=== PATIENT | male | born 1940 | race Two or more races ===

== ENCOUNTER 2017-12-08 13:34 | Inpatient (IN) | payer MEDICARE ==
[2017-12-08] MEDS: IV NORMAL SALINE 1000ML BAG 1,000 ML IV ×2 (14:27→17:53)
[2017-12-08 14:28] LABS: ADD MAN DIFF? NO
[2017-12-08 14:37] LABS: BASO % 1 % (0-3); EOS # 0.1 x10^3/uL (0.0-0.7); EOS % 2 % (0-3); HEMATOCRIT 36.2 % (39.0-53.0); HEMOGLOBIN 11.9 g/dL (13.0-17.5); LYMPH # 1.2 x10^3/uL (1.0-4.8); LYMPH % 20 % (24-48); MEAN CORPUSCULAR HEMOGLOBIN 32 pg (25-35); MEAN CORPUSCULAR HGB CONC 33 g/dL (31-37); MEAN CORPUSCULAR VOLUME 98 fL (79-100); MONO # 0.4 x10^3/uL (0.0-1.1); MONO % 7 % (0-9); NEUT # 4.1 x10^3uL (1.8-7.7); NEUT % 70 % (31-73); PLATELET COUNT 173 x10^3/uL (140-400); RED BLOOD COUNT 3.69 x10^6/uL (4.30-5.70); RED CELL DISTRIBUTION WIDTH 15.5 % (11.5-14.5)
[2017-12-08 14:46] LABS: INR 1.1 (0.8-1.1); PARTIAL THROMBOPLASTIN TIME 28 SEC (24-38); PROTHROMBIN TIME PATIENT 13.6 SEC (11.7-14.0)
[2017-12-08 14:53] LABS: ANION GAP 16 (6-14); BLOOD UREA NITROGEN 77 mg/dL (8-26); BUN/CREATININE RATIO 19 (6-20); CARBON DIOXIDE 21 mmol/L (21-32); CHLORIDE 100 mmol/L (98-107); CREATININE 4.1 mg/dL (0.7-1.3); GFR 14.2; GLUCOSE 245 mg/dL (70-99); POTASSIUM 4.8 mmol/L (3.5-5.1); SODIUM 137 mmol/L (136-145)
[2017-12-08 14:55] LABS: POC GLUCOSE 223 mg/dL (70-99)
[2017-12-08 14:55] LABS: ALBUMIN 3.7 g/dL (3.4-5.0); ALBUMIN/GLOBULIN RATIO 0.9 (1.0-1.7); ALK PHOS 112 U/L (46-116); ALT (SGPT) 41 U/L (16-63); AST (SGOT) 21 U/L (15-37); MAGNESIUM 1.9 mg/dL (1.8-2.4); TOTAL BILIRUBIN 0.2 mg/dL (0.2-1.0)
[2017-12-08 14:56] LABS: TROPONINI < 0.017 ng/mL (0.000-0.055)
[2017-12-08 15:01] LABS: NT-PRO BNP 830 pg/mL (0-449)
[2017-12-08 15:04] LABS: THYROID STIM HORMONE (TSH) 3.293 uIU/mL (0.358-3.74)
[2017-12-08] MEDS ORDERED: ONDANSETRON PF 4 MG/2 ML VIAL. IV (16:00)
[2017-12-08] MEDS ORDERED: ACETAMINOPHEN 325 MG TABLET. PO (16:00)
[2017-12-08 16:04] LABS: BILIRUBIN,URINE NEGATIVE (NEG); CLARITY,URINE CLEAR; COLOR,URINE YELLOW; GLUCOSE,URINE 500 mg/dL (NEG); NITRITE,URINE NEGATIVE (NEG); PROTEIN,URINE 30 mg/dL (NEG-TRACE); UROBILINOGEN,URINE 0.2 mg/dL (0.2 mg/dL)
[2017-12-08 16:12] LABS: BACTERIA,URINE 0 /HPF (0-FEW); HYALINE CASTS, URINE FEW /HPF; SQUAMOUS EPITHELIAL CELL,UR FEW /LPF; WBC,URINE 0 /HPF (0-4)
[2017-12-08] MEDS ORDERED: DEXTROSE 50% 25 GM / 50ML DISP.SYRIN. IV (17:15)
[2017-12-08 17:36] LABS: POC GLUCOSE 159 mg/dL (70-99)
[2017-12-08 17:52] LABS: LACTIC ACID 2.4 mmol/L (0.4-2.0)
[2017-12-08] MEDS: DONEPEZIL HCL 5 MG TABLET. PO (17:52)
[2017-12-08 19:26] LABS: POC GLUCOSE 229 mg/dL (70-99)
[2017-12-08] MEDS: PRIMIDONE 50 MG TABLET PO (21:00)
[2017-12-08] MEDS: INSULIN DETEMIR 300 UNITS/3 ML INSULN.PEN. SQ (21:09)
[2017-12-09] MEDS: IV NORMAL SALINE 1000ML BAG 1,000 ML IV ×3 (01:55→13:53)
[2017-12-09 05:18] LABS: ADD MAN DIFF? NO
[2017-12-09 05:46] LABS: BASO % 1 % (0-3); EOS # 0.2 x10^3/uL (0.0-0.7); EOS % 4 % (0-3); HEMATOCRIT 29.8 % (39.0-53.0); HEMOGLOBIN 9.9 g/dL (13.0-17.5); LYMPH # 1.3 x10^3/uL (1.0-4.8); LYMPH % 27 % (24-48); MEAN CORPUSCULAR HEMOGLOBIN 33 pg (25-35); MEAN CORPUSCULAR HGB CONC 33 g/dL (31-37); MEAN CORPUSCULAR VOLUME 99 fL (79-100); MONO # 0.5 x10^3/uL (0.0-1.1); MONO % 10 % (0-9); NEUT # 2.8 x10^3uL (1.8-7.7); NEUT % 58 % (31-73); PLATELET COUNT 140 x10^3/uL (140-400); RED BLOOD COUNT 3.02 x10^6/uL (4.30-5.70); RED CELL DISTRIBUTION WIDTH 15.2 % (11.5-14.5); WHITE BLOOD COUNT 4.7 x10^3/uL (4.0-11.0)
[2017-12-09 06:17] LABS: ANION GAP 12 (6-14); BLOOD UREA NITROGEN 67 mg/dL (8-26); CALCIUM 8.5 mg/dL (8.5-10.1); CARBON DIOXIDE 22 mmol/L (21-32); CHLORIDE 107 mmol/L (98-107); CREATININE 3.9 mg/dL (0.7-1.3); GFR 15.1; GLUCOSE 112 mg/dL (70-99); POTASSIUM 4.2 mmol/L (3.5-5.1); SODIUM 141 mmol/L (136-145)
[2017-12-09 08:03] LABS: POC GLUCOSE 69 mg/dL (70-99)
[2017-12-09] MEDS: PRIMIDONE 50 MG TABLET PO ×2 (09:00→20:51)
[2017-12-09] MEDS: DONEPEZIL HCL 5 MG TABLET. PO (09:00)
[2017-12-09 09:52] LABS: LACTIC ACID 1.4 mmol/L (0.4-2.0)
[2017-12-09 09:56] LABS: % SAT IRON 48 % (15-34); IRON,SERUM 101 ug/dL (65-175)
[2017-12-09 10:14] LABS: FERRITIN 142 ng/mL (26-388)
[2017-12-09 11:30] LABS: POC GLUCOSE 135 mg/dL (70-99)
[2017-12-09 17:09] LABS: POC GLUCOSE 198 mg/dL (70-99)
[2017-12-09] MEDS ORDERED: DEXTROSE 50% 25 GM / 50ML DISP.SYRIN. IV ×3 (17:15)
[2017-12-09] MEDS: INSULIN ASPART 300 UNITS/3 ML INSULN.PEN SQ (17:30)
[2017-12-09] MEDS: INSULIN DETEMIR 300 UNITS/3 ML INSULN.PEN. SQ (20:54)
[2017-12-09 21:01] LABS: POC GLUCOSE 202 mg/dL (70-99)
[2017-12-09 22:15] LABS: HEMOGLOBIN A1C 7.5 % (4.8-5.6)
[2017-12-09 23:12] LABS: HEP B SURFACE ABDY Non Reactive (.)
[2017-12-10] MEDS: PRIMIDONE 50 MG TABLET PO ×2 (07:55→21:00)
[2017-12-10] MEDS: INSULIN ASPART 300 UNITS/3 ML INSULN.PEN SQ ×3 (07:55→17:41)
[2017-12-10] MEDS: DONEPEZIL HCL 5 MG TABLET. PO (07:55)
[2017-12-10 08:46] LABS: POC GLUCOSE 71 mg/dL (70-99)
[2017-12-10 08:58] LABS: ADD MAN DIFF? NO
[2017-12-10 09:14] LABS: ANION GAP 12 (6-14); BLOOD UREA NITROGEN 51 mg/dL (8-26); CALCIUM 8.9 mg/dL (8.5-10.1); CARBON DIOXIDE 20 mmol/L (21-32); CHLORIDE 108 mmol/L (98-107); CREATININE 2.8 mg/dL (0.7-1.3); GFR 22.1; GLUCOSE 68 mg/dL (70-99); POTASSIUM 4.1 mmol/L (3.5-5.1); SODIUM 140 mmol/L (136-145)
[2017-12-10 10:26] LABS: BASO % 1 % (0-3); EOS # 0.2 x10^3/uL (0.0-0.7); EOS % 4 % (0-3); HEMATOCRIT 28.8 % (39.0-53.0); HEMOGLOBIN 9.4 g/dL (13.0-17.5); LYMPH # 1.2 x10^3/uL (1.0-4.8); LYMPH % 29 % (24-48); MEAN CORPUSCULAR HEMOGLOBIN 32 pg (25-35); MEAN CORPUSCULAR HGB CONC 33 g/dL (31-37); MEAN CORPUSCULAR VOLUME 99 fL (79-100); MONO # 0.4 x10^3/uL (0.0-1.1); MONO % 10 % (0-9); NEUT # 2.4 x10^3uL (1.8-7.7); NEUT % 56 % (31-73); PLATELET COUNT 134 x10^3/uL (140-400); RED BLOOD COUNT 2.92 x10^6/uL (4.30-5.70); RED CELL DISTRIBUTION WIDTH 15.2 % (11.5-14.5); WHITE BLOOD COUNT 4.3 x10^3/uL (4.0-11.0)
[2017-12-10 12:04] LABS: POC GLUCOSE 63 mg/dL (70-99)
[2017-12-10 12:49] LABS: POC GLUCOSE 127 mg/dL (70-99)
[2017-12-10] MEDS: IV NORMAL SALINE 1000ML BAG 1,000 ML IV ×3 (15:44→20:00)
[2017-12-10 16:53] LABS: POC GLUCOSE 161 mg/dL (70-99)
[2017-12-10] MEDS: INSULIN DETEMIR 300 UNITS/3 ML INSULN.PEN. SQ (21:04)
[2017-12-10 21:18] LABS: POC GLUCOSE 191 mg/dL (70-99)
[2017-12-11] MEDS: IV NORMAL SALINE 1000ML BAG 1,000 ML IV ×3 (03:40→22:53)
[2017-12-11 05:31] LABS: ADD MAN DIFF? NO
[2017-12-11 05:43] LABS: BASO % 1 % (0-3); EOS # 0.1 x10^3/uL (0.0-0.7); EOS % 3 % (0-3); HEMATOCRIT 28.4 % (39.0-53.0); HEMOGLOBIN 9.5 g/dL (13.0-17.5); LYMPH # 1.2 x10^3/uL (1.0-4.8); LYMPH % 29 % (24-48); MEAN CORPUSCULAR HEMOGLOBIN 33 pg (25-35); MEAN CORPUSCULAR HGB CONC 33 g/dL (31-37); MEAN CORPUSCULAR VOLUME 98 fL (79-100); MONO # 0.4 x10^3/uL (0.0-1.1); MONO % 10 % (0-9); NEUT # 2.3 x10^3uL (1.8-7.7); NEUT % 57 % (31-73); PLATELET COUNT 132 x10^3/uL (140-400); RED BLOOD COUNT 2.89 x10^6/uL (4.30-5.70); RED CELL DISTRIBUTION WIDTH 15.1 % (11.5-14.5); WHITE BLOOD COUNT 4.1 x10^3/uL (4.0-11.0)
[2017-12-11 06:16] LABS: ANION GAP 10 (6-14); BLOOD UREA NITROGEN 39 mg/dL (8-26); CALCIUM 8.8 mg/dL (8.5-10.1); CARBON DIOXIDE 19 mmol/L (21-32); CHLORIDE 111 mmol/L (98-107); CREATININE 2.8 mg/dL (0.7-1.3); GFR 22.1; GLUCOSE 79 mg/dL (70-99); POTASSIUM 4.2 mmol/L (3.5-5.1); SODIUM 140 mmol/L (136-145)
[2017-12-11 07:47] LABS: POC GLUCOSE 46 mg/dL (70-99)
[2017-12-11] MEDS: INSULIN ASPART 300 UNITS/3 ML INSULN.PEN SQ ×3 (07:53→17:00)
[2017-12-11] MEDS: DONEPEZIL HCL 5 MG TABLET. PO (08:45)
[2017-12-11] MEDS: PRIMIDONE 50 MG TABLET PO ×2 (08:45→21:16)
[2017-12-11 08:50] LABS: POC GLUCOSE 126 mg/dL (70-99)
[2017-12-11 11:15] LABS: POC GLUCOSE 140 mg/dL (70-99)
[2017-12-11 17:07] LABS: POC GLUCOSE 137 mg/dL (70-99)
[2017-12-11 20:41] LABS: POC GLUCOSE 239 mg/dL (70-99)
[2017-12-11] MEDS: INSULIN DETEMIR 300 UNITS/3 ML INSULN.PEN. SQ (21:17)
[2017-12-12 05:20] LABS: ADD MAN DIFF? NO
[2017-12-12 05:40] LABS: BASO % 1 % (0-3); EOS # 0.1 x10^3/uL (0.0-0.7); EOS % 3 % (0-3); HEMATOCRIT 27.6 % (39.0-53.0); HEMOGLOBIN 9.2 g/dL (13.0-17.5); LYMPH # 1.2 x10^3/uL (1.0-4.8); LYMPH % 26 % (24-48); MEAN CORPUSCULAR HEMOGLOBIN 33 pg (25-35); MEAN CORPUSCULAR HGB CONC 33 g/dL (31-37); MEAN CORPUSCULAR VOLUME 98 fL (79-100); MONO # 0.5 x10^3/uL (0.0-1.1); MONO % 11 % (0-9); NEUT # 2.7 x10^3uL (1.8-7.7); NEUT % 59 % (31-73); PLATELET COUNT 123 x10^3/uL (140-400); RED BLOOD COUNT 2.81 x10^6/uL (4.30-5.70); RED CELL DISTRIBUTION WIDTH 15.4 % (11.5-14.5); WHITE BLOOD COUNT 4.6 x10^3/uL (4.0-11.0)
[2017-12-12 06:08] LABS: ANION GAP 11 (6-14); BLOOD UREA NITROGEN 35 mg/dL (8-26); CALCIUM 8.6 mg/dL (8.5-10.1); CARBON DIOXIDE 18 mmol/L (21-32); CHLORIDE 110 mmol/L (98-107); CREATININE 2.5 mg/dL (0.7-1.3); GFR 25.2; GLUCOSE 119 mg/dL (70-99); POTASSIUM 4.2 mmol/L (3.5-5.1); SODIUM 139 mmol/L (136-145)
[2017-12-12 07:33] LABS: POC GLUCOSE 64 mg/dL (70-99)
[2017-12-12] MEDS: INSULIN ASPART 300 UNITS/3 ML INSULN.PEN SQ ×3 (07:33→17:25)
[2017-12-12] MEDS: PRIMIDONE 50 MG TABLET PO ×2 (07:45→21:37)
[2017-12-12] MEDS: DONEPEZIL HCL 5 MG TABLET. PO (07:45)
[2017-12-12] MEDS: IV NORMAL SALINE 1000ML BAG 1,000 ML IV ×2 (07:45→21:39)
[2017-12-12 11:28] LABS: POC GLUCOSE 101 mg/dL (70-99)
[2017-12-12 13:19] LABS: CALCIUM PTH 8.9 mg/dL (8.6-10.2); PHOSPHORUS PTH 3.4 mg/dL (2.5-4.5); PTH INTACT 223 pg/mL (15-65); eGFR AFRICAN-AMER 18 (>59); eGFR NON AFRICAN-AMER 15 (>59)
[2017-12-12 17:15] LABS: POC GLUCOSE 141 mg/dL (70-99)
[2017-12-12 21:33] LABS: POC GLUCOSE 184 mg/dL (70-99)
[2017-12-12] MEDS: INSULIN DETEMIR 300 UNITS/3 ML INSULN.PEN. SQ (21:44)
[2017-12-13] MEDS: IV NORMAL SALINE 1000ML BAG 1,000 ML IV (04:33)
[2017-12-13 05:53] LABS: ADD MAN DIFF? NO
[2017-12-13 06:09] LABS: BASO % 1 % (0-3); EOS # 0.1 x10^3/uL (0.0-0.7); EOS % 3 % (0-3); HEMOGLOBIN 9.8 g/dL (13.0-17.5); LYMPH # 1.4 x10^3/uL (1.0-4.8); LYMPH % 28 % (24-48); MEAN CORPUSCULAR HEMOGLOBIN 32 pg (25-35); MEAN CORPUSCULAR HGB CONC 33 g/dL (31-37); MEAN CORPUSCULAR VOLUME 98 fL (79-100); MONO # 0.5 x10^3/uL (0.0-1.1); MONO % 11 % (0-9); NEUT # 2.8 x10^3uL (1.8-7.7); NEUT % 57 % (31-73); PLATELET COUNT 127 x10^3/uL (140-400); RED BLOOD COUNT 3.06 x10^6/uL (4.30-5.70); RED CELL DISTRIBUTION WIDTH 15.2 % (11.5-14.5)
[2017-12-13 06:19] LABS: ANION GAP 9 (6-14); BLOOD UREA NITROGEN 29 mg/dL (8-26); CALCIUM 8.5 mg/dL (8.5-10.1); CARBON DIOXIDE 20 mmol/L (21-32); CHLORIDE 109 mmol/L (98-107); CREATININE 2.1 mg/dL (0.7-1.3); GFR 30.8; GLUCOSE 54 mg/dL (70-99); POTASSIUM 4.1 mmol/L (3.5-5.1); SODIUM 138 mmol/L (136-145)
[2017-12-13 07:48] LABS: POC GLUCOSE 52 mg/dL (70-99)
[2017-12-13] MEDS: INSULIN ASPART 300 UNITS/3 ML INSULN.PEN SQ ×2 (07:48→11:41)
[2017-12-13 08:40] LABS: POC GLUCOSE 159 mg/dL (70-99)
[2017-12-13] MEDS: PRIMIDONE 50 MG TABLET PO (09:55)
[2017-12-13] MEDS: DONEPEZIL HCL 5 MG TABLET. PO (09:55)
[2017-12-13 11:26] LABS: POC GLUCOSE 135 mg/dL (70-99)
== END 2017-12-13 14:39 | disposition home health service (06) | DRG 314 ==
LOC: ER 13:34 → 6 SOUTH 15:30
DX: I95.9 Hypotension, unspecified (principal); N17.0 Acute kidney failure with tubular necrosis; N18.4 Chronic kidney disease, stage 4 (severe); E11.22 Type 2 diabetes mellitus with diabetic chronic kidney disease; E11.40 Type 2 diabetes mellitus with diabetic neuropathy, unspecified; D64.9 Anemia, unspecified; E86.0 Dehydration; F02.80 Dementia in other diseases classified elsewhere, unspecified severity, without behavioral disturbance, psychotic disturbance, mood disturbance, and anxiety; G25.0 Essential tremor; G30.9 Alzheimer's disease, unspecified; I12.9 Hypertensive chronic kidney disease with stage 1 through stage 4 chronic kidney disease, or unspecified chronic kidney disease; I25.10 Atherosclerotic heart disease of native coronary artery without angina pectoris; Z82.49 Family history of ischemic heart disease and other diseases of the circulatory system; Z86.73 Personal history of transient ischemic attack (TIA), and cerebral infarction without residual deficits; F32.9 Major depressive disorder, single episode, unspecified; R79.89 Other specified abnormal findings of blood chemistry; F41.9 Anxiety disorder, unspecified; H60.90 Unspecified otitis externa, unspecified ear; M10.9 Gout, unspecified; Z95.5 Presence of coronary angioplasty implant and graft
CPT/HCPCS: 36415; 70450; 71045; 76770; 80048; 80053; 81001; 82728; 82962; 83036; 83540; 83550; 83605; 83735; 83880; 83970; 84443; 84484; 85025; 85045; 85610; 85730; 86704; 86706; 87040; 93005; 93306; 96360; 97110-GP; 97116-GP; 97162-GP; 97165-GO; 97530-GP; 99285; 99285-25; J1815; J7030

== ENCOUNTER 2019-08-07 20:14 | Emergency (ER) | payer MEDICARE, MEDICAID ==
[~2019-08-07] VITALS: Ht 167.6 cm; Wt 47.6 kg
[~2019-08-07 20:14] MED LIST: ALLO300T67 PO; ATEN-56 PO; BUPR150T6 PO; CALC0.25 PO; CLOP75TA PO; DONE5TAB56 PO; FURO-69 PO; INSU100V13 SQ; MECL12.52 PO; PARO20TA99 PO; PRIM50TA PO
[2019-08-07 20:51] LABS: BASO # 0.1 x10^3/uL (0.0-0.2); BASO % 1 % (0-3); EOS # 0.2 x10^3/uL (0.0-0.7); EOS % 3 % (0-3); HEMATOCRIT 32.8 % (39.0-53.0); HEMOGLOBIN 10.5 g/dL (13.0-17.5); LYMPH % 12 % (24-48); MEAN CORPUSCULAR HEMOGLOBIN 31 pg (25-35); MEAN CORPUSCULAR HGB CONC 32 g/dL (31-37); MEAN CORPUSCULAR VOLUME 98 fL (79-100); MONO # 0.6 x10^3/uL (0.0-1.1); MONO % 8 % (0-9); NEUT # 6.3 x10^3/uL (1.8-7.7); NEUT % 77 % (31-73); PLATELET COUNT 223 x10^3/uL (140-400); RED BLOOD COUNT 3.34 x10^6/uL (4.30-5.70); RED CELL DISTRIBUTION WIDTH 15.6 % (11.5-14.5); WHITE BLOOD COUNT 8.1 x10^3/uL (4.0-11.0)
[2019-08-07] MEDS ORDERED: ONDA4TAB12 PO (21:02)
--- NOTE | 2019-08-07 21:02 | PHYS DOC ---
Past Medical History Past Medical History: Depression, Diabetes-Type II, Hypertension, Renal Failure (stage IV), Other Additional Past Medical Histor: GOUT Past Surgical History: Angioplasty Additional Past Surgical Histo: CARDAIC STENTS Alcohol Use: None Drug Use: None Adult General Chief Complaint Chief Complaint: NAUSEA/VOMITING/DIARRHA HPI HPI 78-year-old male from [facility] presents via [facility] secondary to questionable nausea vomiting and elevated blood pressure. On arrival here patient has absolutely no complaints. Patient has a history of dementia and is unable to provide an intricate history.[] Review of Systems Review of Systems Unable to assess review of systems secondary to underlying dementia. Allergies Allergies Allergies Coded Allergies Type Severity Reaction Last Updated Verified No Known Drug Allergies 12/08/17 No Physical Exam Physical Exam Constitutional: Well developed, well nourished, no acute distress, non-toxic appearance. [] HENT: Normocephalic, atraumatic, bilateral external ears normal, oropharynx moist, no oral exudates, nose normal. [] Eyes: PERRL, EOMI, conjunctiva normal, no discharge. [] Neck: Normal range of motion, no tenderness, supple, no stridor. [] Cardiovascular:Heart rate regular rhythm, no murmur [] Lungs & Thorax: Bilateral breath sounds clear to auscultation [] Abdomen: Bowel sounds normal, soft, no tenderness, no masses, no pulsatile masses. [] Skin: Warm, dry, no erythema, no rash. [] Back: No tenderness, no CVA tenderness. [] Extremities: No tenderness, no cyanosis, no clubbing, ROM intact, no edema. [] Neurologic: Alert and oriented X 3, normal motor function, normal sensory function, no focal deficits noted. [] Psychologic: Flat affect. [] Current Patient Data Vital Signs Vital Signs Date Time Temp Pulse Resp B/P (MAP) Pulse Ox O2 Delivery O2 Flow Rate FiO2 08/07/19 20:14 98.3 68 17 182/82 (115) 99 Room Air 98.3 Lab Values Laboratory Tests Test 08/07/19 20:30 White Blood Count 8.1 x10^3/uL (4.0-11.0) Red Blood Count 3.34 x10^6/uL (4.30-5.70) L Hemoglobin 10.5 g/dL (13.0-17.5) L Hematocrit 32.8 % (39.0-53.0) L Mean Corpuscular Volume 98 fL (79-100) Mean Corpuscular Hemoglobin 31 pg (25-35) Mean Corpuscular Hemoglobin Concent 32 g/dL (31-37) Red Cell Distribution Width 15.6 % (11.5-14.5) H Platelet Count 223 x10^3/uL (140-400) Neutrophils (%) (Auto) 77 % (31-73) H Lymphocytes (%) (Auto) 12 % (24-48) L Monocytes (%) (Auto) 8 % (0-9) Eosinophils (%) (Auto) 3 % (0-3) Basophils (%) (Auto) 1 % (0-3) Neutrophils # (Auto) 6.3 x10^3/uL (1.8-7.7) Lymphocytes # (Auto) 1.0 x10^3/uL (1.0-4.8) Monocytes # (Auto) 0.6 x10^3/uL (0.0-1.1) Eosinophils # (Auto) 0.2 x10^3/uL (0.0-0.7) Basophils # (Auto) 0.1 x10^3/uL (0.0-0.2) Sodium Level 144 mmol/L (136-145) Potassium Level 4.8 mmol/L (3.5-5.1) Chloride Level 108 mmol/L (98-107) H Carbon Dioxide Level 25 mmol/L (21-32) Anion Gap 11 (6-14) Blood Urea Nitrogen 43 mg/dL (8-26) H Creatinine 3.5 mg/dL (0.7-1.3) H Estimated GFR (Cockcroft-Gault) 17.0 BUN/Creatinine Ratio 12 (6-20) Glucose Level 326 mg/dL (70-99) H Calcium Level 9.4 mg/dL (8.5-10.1) Magnesium Level 1.7 mg/dL (1.8-2.4) L Total Bilirubin 0.2 mg/dL (0.2-1.0) Aspartate Amino Transferase (AST) 11 U/L (15-37) L Alanine Aminotransferase (ALT) 12 U/L (16-63) L Alkaline Phosphatase 118 U/L (46-116) H Troponin I Quantitative < 0.017 ng/mL (0.000-0.055) Total Protein 8.2 g/dL (6.4-8.2) Albumin 2.9 g/dL (3.4-5.0) L Albumin/Globulin Ratio 0.5 (1.0-1.7) L Lipase 248 U/L (73-393) Laboratory Tests 08/07/19 20:30 Laboratory Tests 08/07/19 20:30 EKG EKG [EKG: Normal sinus rhythm rate of [address]-T changes Radiology/Procedures Radiology/Procedures []PROCEDURE: CHEST AP ONLY CHEST AP ONLY History: Chest pain Comparison: December 08, 2017 Findings: Mild diffuse interstitial thickening. Patchy left basilar opacity. No pleural effusion. Normal heart size. No pneumothorax. Shrapnel projecting over the left mid chest and left upper extremity, unchanged. Impression: 1. Patchy left basilar opacity, may represent atelectasis or developing consolidation. PA and lateral view of the chest can better assess. 2. Mild diffuse interstitial thickening, may relate to chronic interstitial changes. Course & Med Decision Making Course & Med Decision Making Pertinent Labs and Imaging studies reviewed. (See chart for details) [ED course: Evaluation reveals a 78-year-old , Maltese only speaking male who has absolutely no complaints. His physical exam was unrevealing. I did not see any evidence that he had fallen or hurt himself. His abdomen was benign. I do not believe there is any need for routine lab test at this time. Patient safe for discharge back to the nursing facility. His daughter came later and he told his daughter that he did have some chest discomfort so laboratory studies were ordered. I discussed the findings of the studies with the daughter who confirmed that he does have stage IV renal failure and this has been stable for some time. He has not had any cough or fever. Patient is safe for discharge home back to the nursing facility] Dragon Disclaimer Dragon Disclaimer This electronic medical record was generated, in whole or in part, using a voice recognition dictation system. Departure Departure Impression: Primary Impression: Nausea and vomiting Additional Impression: Chest pain Disposition: HOME, SELF-CARE Condition: STABLE Referrals: PAZ LARSON MD (PCP) Patient Instructions: Chest Pain (Nonspecific), Nausea, Adult Additional Instructions: Return to emergency department with any new or concerning symptoms Scripts Ondansetron (ONDANSETRON ODT) 4 Mg Tab.rapdis 1 TAB PO PRN Q6-8HRS for VOMITING, #16 TAB Prov: CAMPOS LIANG DO 08/07/19 Problem Qualifiers Primary Impression: Nausea and vomiting Vomiting type: unspecified Vomiting Intractability: unspecified Qualified Codes: R11.2 - Nausea with vomiting, unspecified Additional Impression: Chest pain Chest pain type: unspecified Qualified Codes: R07.9 - Chest pain, unspecified CAMPOS LIANG DO Aug 07, 2019 21:02
[2019-08-07 21:03] LABS: CALCIUM 9.4 mg/dL (8.5-10.1); CREATININE 3.5 mg/dL (0.7-1.3); POTASSIUM 4.8 mmol/L (3.5-5.1)
[2019-08-07 21:07] LABS: ALBUMIN 2.9 g/dL (3.4-5.0); ALBUMIN/GLOBULIN RATIO 0.5 (1.0-1.7); MAGNESIUM 1.7 mg/dL (1.8-2.4); TOTAL BILIRUBIN 0.2 mg/dL (0.2-1.0); TOTAL PROTEIN 8.2 g/dL (6.4-8.2)
--- NOTE | 2019-08-07 21:44 | RAD ---
CHEST AP ONLY History: Chest pain Comparison: December 08, 2017 Findings: Mild diffuse interstitial thickening. Patchy left basilar opacity. No pleural effusion. Normal heart size. No pneumothorax. Shrapnel projecting over the left mid chest and left upper extremity, unchanged. Impression: 1. Patchy left basilar opacity, may represent atelectasis or developing consolidation. PA and lateral view of the chest can better assess. 2. Mild diffuse interstitial thickening, may relate to chronic interstitial changes. Electronically signed by: Alexandre Lomeli DO (08/07/2019 9:42 PM) [id number]
[2019-08-07 22:21] VITALS: BP 176/79
--- NOTE | 2019-08-08 06:24 | EKG ---
[facility] [address] [place] [address] Test Date: 2019-08-07 Test Time: 20:54:51 Pat Name: OSEAS ESQUEDA Department: Room: Gender: M Truck Trailer Mechanic: : [id number] Requested By: CAMPOS LIANG Order Number: [id number] Reading MD: Measurements Intervals [place] Rate: 65 P: 63 DE: 132 QRS: -54 QRSD: 114 T: 34 QT: 422 QTc: 444 Interpretive Statements SINUS RHYTHM LEFT ATRIAL ABNORMALITY ABNORMAL LEFT AXIS DEVIATION LEFT ANTERIOR FASCICULAR BLOCK LEFT VENTRICULAR HYPERTROPHY NON SPECIFIC ST-T ABNORMALITY (ELEVATION) ABNORMAL ECG No previous ECG available for comparison
== END 2019-08-07 23:35 | disposition home or self-care (01) ==
LOC: ER 20:14
DX: R11.2 Nausea with vomiting, unspecified (principal); R07.89 Other chest pain; I12.9 Hypertensive chronic kidney disease with stage 1 through stage 4 chronic kidney disease, or unspecified chronic kidney disease; E11.22 Type 2 diabetes mellitus with diabetic chronic kidney disease; N18.4 Chronic kidney disease, stage 4 (severe); M10.9 Gout, unspecified; Z95.5 Presence of coronary angioplasty implant and graft
CPT/HCPCS: 36415; 71045; 80053; 83690; 83735; 84484; 85025; 93005; 99285-25